=== PATIENT | male | born 1960 | race Caucasian/White ===

== ENCOUNTER 2017-09-10 16:31 | Emergency (ER) | payer BC | END 2017-09-10 18:05 | disposition home or self-care (01) | LOC: D.ER 16:31 | DX: S43.401A Unspecified sprain of right shoulder joint, initial encounter (principal); W22.8XXA Striking against or struck by other objects, initial encounter; Y93.89 Activity, other specified; Y92.019 Unspecified place in single-family (private) house as the place of occurrence of the external cause; S40.011A Contusion of right shoulder, initial encounter ==